=== PATIENT | female | born 1975 | race Caucasian/White ===

== ENCOUNTER 2022-03-05 11:51 | Outpatient (CLI) | payer BC | END 2022-03-05 11:52 | disposition home or self-care (01) | LOC: CSHRAD 11:51 | PROVIDERS: ATTEND Family Medicine | DX: R10.9 Unspecified abdominal pain (principal); R19.7 Diarrhea, unspecified; R19.09 Other intra-abdominal and pelvic swelling, mass and lump; Z98.890 Other specified postprocedural states | CPT/HCPCS: 74018 ==

== ENCOUNTER 2022-07-01 06:00 | Day surgery (SDC) | payer BC ==
[2022-06-27 09:38] LABS: BHCG - Serum Negative (NEGATIVE); Pregs Control Background? CLEAR/WHITE (CLR/WHITE); Pregs Control Bar Appear? YES (CONTROL BAR)
[2022-06-27 09:47] LABS: Hemoglobin 13.2 g/dL (12.0-15.5); Mean Corpuscular Volume 93.6 fl (81.6-98.3); Mean Platelet Volume 10.5 fl (7.4-10.4); Platelet Count 317 10x3/uL (150-450); RBC Distribution Width 13.2 % (11.5-14.5); White Blood Cell (WBC) Count 6.1 10x3/uL (3.5-10.5)
[2022-06-27 11:56] VITALS: BMI 29.5
[2022-07-01] MEDS ORDERED: CeleCOXIB 100 MG CAP ONE (06:11)
[2022-07-01] MEDS ORDERED: Gabapentin 300 MG CAP ONE (06:11)
[2022-07-01] MEDS ORDERED: Famotidine/PF 20 mg/2ml Vial ONE ×2 (06:12)
[2022-07-01] MEDS ORDERED: Bupivacaine HCl 0.5%/Epinephrine 1:200,000/PF 30 ml Vial ONE (06:50)
[2022-07-01] MEDS ORDERED: PROPOFOL 20 ML ONE (07:19)
[2022-07-01] MEDS ORDERED: Ondansetron PF 4 MG/2 ML Vial ONE (07:20)
[2022-07-01] MEDS ORDERED: Midazolam HCl 2 mg/2 ml Vial ONE (07:20)
[2022-07-01] MEDS ORDERED: Esmolol 100 MG/10 ML VIAL ONE (07:20)
[2022-07-01] MEDS ORDERED: Lidocaine 1% PF 5 ML VIAL ONE (07:20)
[2022-07-01] MEDS ORDERED: Dexamethasone 4 mg/ml Vial ONE (07:20)
[2022-07-01] MEDS ORDERED: Ketorolac Tromethamine 30 MG/ML VIAL ONE (07:20)
[2022-07-01] MEDS ORDERED: HYDROmorphone 0.5 MG/0.5 ML SYRINGE ONE (07:24)
[2022-07-01] MEDS ORDERED: Propofol 1,000 MG/100 ML VIAL IV ONE (07:24)
[2022-07-01] MEDS ORDERED: SUGAMMADEX SODIUM 200 MG/2 ML VIAL ONE (07:24)
[2022-07-01] MEDS ORDERED: CEFAZOLIN 2 GM VIAL ONE (07:27)
[2022-07-01] MEDS ORDERED: Fentanyl 100 MCG/2 ML VIAL ONE ×2 (07:46→11:07)
[2022-07-01] MEDS ORDERED: Ropivacaine 0.2% 550 ML 750 ML NERVE BLCK SCH (10:30)
[2022-07-01] MEDS ORDERED: Ropivacaine HCl/PF 750 ML in Premix Bag 1 BAG NERVE BLCK SCH (10:45)
[2022-07-01] MEDS ORDERED: HYDROcodone/Acetaminophen 5/325 mg Tablet PO PRN ×2 (10:46→10:47)
[2022-07-01] MEDS ORDERED: Ondansetron PF 4 MG/2 ML Vial IVP PRN (10:46)
[2022-07-01] MEDS ORDERED: Fentanyl 100 MCG/2 ML VIAL SLOW IVP PRN (10:46)
[2022-07-01] MEDS ORDERED: Morphine 2 MG/ML VIAL SLOW IVP PRN (10:48)
[2022-07-01] MEDS ORDERED: Non-Formulary Medication 1 EACH PO PRN (10:49)
[2022-07-01] MEDS ORDERED: Promethazine HCl 25 MG/ML VIAL IM/IV PRN (11:00)
[2022-07-01] MEDS ORDERED: HYDROmorphone 2 MG/ML VIAL SLOW IVP PRN (11:00)
[2022-07-01] MEDS ORDERED: Ondansetron HCl/PF 4 MG/2 ML Vial IVP PRN (11:00)
[2022-07-01] MEDS ORDERED: Dextrose 5 %-0.45 % NaCl 1,000 ML IV SCH (11:00)
== END 2022-07-01 12:46 | disposition home or self-care (01) ==
LOC: CSHSDC 06:00
PROVIDERS: ATTEND Obstetrics & Gynecology
PROC: 0UT94ZZ Resection of Uterus, Percutaneous Endoscopic Approach (ICD-10-PCS; principal; 2022-07-01)
PROC: 0UT74ZZ Resection of Bilateral Fallopian Tubes, Percutaneous Endoscopic Approach (ICD-10-PCS; principal; 2022-07-01)
PROC: 0UT04ZZ Resection of Right Ovary, Percutaneous Endoscopic Approach (ICD-10-PCS; principal; 2022-07-01)
DX: N80.03 Adenomyosis of the uterus (principal); D25.9 Leiomyoma of uterus, unspecified; N92.0 Excessive and frequent menstruation with regular cycle; N83.11 Corpus luteum cyst of right ovary; F32.A Depression, unspecified; Z79.899 Other long term (current) drug therapy
CPT/HCPCS: 84703; 85027; 86850; 86900; 86901; 88305; 88307; C1776; J1100; J1170; J1885; J2250; J2405; J2704; J3010; J7042; S0028